=== PATIENT | male | born 1965 | race Caucasian/White ===

== ENCOUNTER 2017-11-19 02:52 | Emergency (ER) | payer OTHER ==
[2017-11-19] MEDS ORDERED: Phenylephrine 0.5% Nasal Spray 15 ML Bot NASBOTH ONE (02:55)
[2017-11-19 02:57] VITALS: BP 143/73
--- NOTE | 2017-11-19 03:07 | EDM.PDOC ---
ED HPI GENERAL MEDICAL PROBLEM - General Chief Complaint: ENT Problem Stated Complaint: BLOODY NOSE Time Seen by Provider: 11/19/17 03:06 Source of Information: Reports: Patient History Limitations: Reports: No Limitations - History of Present Illness INITIAL COMMENTS - FREE TEXT/NARRATIVE: ED with c/o nose bleed since midnight on right side. Reports frequent nose bleeds none this severe. - Related Data Allergies Allergy/AdvReac Type Severity Reaction Status Date / Time gabapentin [From Neurontin] Allergy Rash Verified 11/19/17 03:06 Zxumtdj-[id number]-Hrv Reductase Allergy Chest Pain Verified 11/19/17 03:06 Inhibitor Home Meds: Home Meds metFORMIN [Glucophage] 1,000 mg PO BID 12/01/14 [History] Nitroglycerin [Nitrostat] 0.4 mg SL Q5M PRN 04/21/15 [History] Amitriptyline [Elavil] 10 mg PO BEDTIME 05/15/15 [History] Rivaroxaban [Xarelto] 20 mg PO BEDTIME 05/15/15 [History] Metoprolol Tartrate 100 mg PO BID 11/28/15 [History] Pantoprazole [ProTONIX] 40 mg PO DAILY 11/28/15 [History] Aspirin [Ecotrin] 81 mg PO DAILY 11/19/17 [History] Clopidogrel Bisulfate [Clopidogrel] 75 mg PO DAILY 11/19/17 [History] Multivitamin [Multivitamins] 1 each PO DAILY 11/19/17 [History] Past Medical History HEENT History: Reports: Allergic Rhinitis, Epistaxis, Impaired Vision, Sinusitis Cardiovascular History: Reports: Bypass, CAD, High Cholesterol, Hypertension Respiratory History: Reports: Asthma Gastrointestinal History: Reports: Chronic Constipation Musculoskeletal History: Reports: Fibromyalgia, Osteoarthritis Psychiatric History: Reports: Depression Endocrine/Metabolic History: Reports: Diabetes, Type II, IDDM, Obesity/BMI 30+ - Infectious Disease History Infectious Disease History: Reports: Chicken Pox, Measles - Past Surgical History Cardiovascular Surgical History: Reports: Coronary Artery Bypass Musculoskeletal Surgical History: Reports: None Social & Family History - Family History Family Medical History: Noncontributory - Tobacco Use Smoking Status *Q: Never Smoker Second Hand Smoke Exposure: No - Recreational Drug Use Recreational Drug Use: No - Living Situation & Occupation Living situation: Reports: , with Family Occupation: Disabled ED ROS ENT - Review of Systems Review Of Systems: ROS reveals no pertinent complaints other than HPI. ED EXAM, ENT - Physical Exam Exam: See Below Exam Limited By: No Limitations General Appearance: Alert, Mild Distress Eye Exam: Bilateral Eye: Normal Inspection Ears: Normal External Exam Nose: Active Bleeding (right) Mouth/Throat: Normal Inspection Head: Atraumatic, Normocephalic Neck: Normal Inspection, Supple Respiratory/Chest: No Respiratory Distress, Lungs Clear Cardiovascular: Normal Peripheral Pulses, Regular Rate, Rhythm GI/Abdominal: Normal Bowel Sounds Extremities: Normal Inspection Neurological: Alert, Oriented Psychiatric: Normal Affect Skin: Warm, Dry, Intact, Normal Color ED ENT PROCEDURES - Epistaxis Procedure Indication: Epistaxis, Uncontrolled Uncontrolled HTN: No Recent septal/nasal surgery: No Site of bleeding: Right Nare, Anterior Clearing of clots: Patient Blew Nose Topical Meds: Phenylephrine Anterior Packing: Inflatable Nasal Tampon Complications: No Course - Vital Signs Last Recorded V/S: Last Vital Signs Temp 97.6 F 11/19/17 02:53 Pulse 60 11/19/17 02:53 Resp 18 11/19/17 02:53 BP 143/73 H 11/19/17 02:53 Pulse Ox 99 11/19/17 02:53 - Orders/Labs/Meds Labs: Laboratory Tests 11/19/17 11/19/17 11/19/17 Range/Units 03:35 03:35 03:35 WBC 8.3 (5.0-10.0) 10^3/uL RBC 4.71 (4.6-6.2) 10^6/uL Hgb 13.7 L (14.0-18.0) g/dL Hct 40.5 (40.0-54.0) % MCV 86.0 (80-100) fL MCH 29.1 (27.0-34.0) pg MCHC 33.8 (33.0-35.0) g/dL Plt Count 269 (150-450) 10^3/uL Neut % (Auto) 71.5 (42.2-75.2) % Lymph % (Auto) 21.1 (20.5-50.1) % [place] % (Auto) 6.8 (2-8) % Eos % (Auto) 0.4 L (1.0-3.0) % Baso % (Auto) 0.2 (0.0-1.0) % PT 14.4 H (9.0-12.0) SEC INR 1.4 H (0.9-1.2) Sodium 136 (135-145) mmol/L Potassium 3.8 (3.6-5.0) mmol/L Chloride 103 (101-111) mmol/L Carbon Dioxide 25.0 (21.0-31.0) mmol/L Anion Gap 11.8 BUN 19 H (7-18) mg/dL Creatinine 0.8 (0.6-1.3) mg/dL Est Cr Clr Drug Dosing 89.42 mL/min Estimated GFR (MDRD) > 60 BUN/Creatinine Ratio 23.75 Glucose 184 H (74-105) mg/dL Calcium 9.2 (8.4-10.2) mg/dl Total Bilirubin 0.6 (0.2-1.0) mg/dL AST 27 (10-42) IU/L ALT 31 (10-60) IU/L Alkaline Phosphatase 34 L (42-121) IU/L Total Protein 6.7 (6.7-8.2) g/dl Albumin 3.5 (3.2-5.5) g/dl Globulin 3.2 Albumin/Globulin Ratio 1.09 Meds: Medications Discontinued Medications Generic Name Dose Route Start Last Admin Trade Name Freq PRN Reason Stop Dose Admin Phenylephrine HCl 1 ml 11/19/17 02:55 11/19/17 03:07 Chin-Synephrine 0.5% Regular Nasal [place] NASBOTH 11/19/17 02:56 1 ml ONETIME ONE Administration Departure - Departure Time of Disposition: 04:21 Disposition: Home, Self-Care 01 Condition: Good Clinical Impression: Epistaxis - Discharge Information Instructions: Nosebleed, Adult, [id number] Forms: ED Department Discharge Additional Instructions: follow up in clinic this afternoon for packing removal urgent follow up if recurrent bleeding despite packing. Discuss with primary provider ENT consult due to frequent nose bleeds
[2017-11-19 04:01] LABS: ANION GAP 11.8; CHLORIDE,CL 103 mmol/L (101-111); SODIUM,NA 136 mmol/L (135-145)
== END 2017-11-19 04:27 | disposition home or self-care (01) ==
LOC: DL.ED 02:52
DX: R04.0 Epistaxis (principal); I10 Essential (primary) hypertension; E11.9 Type 2 diabetes mellitus without complications; E78.00 Pure hypercholesterolemia, unspecified; M19.90 Unspecified osteoarthritis, unspecified site; Z88.8 Allergy status to other drugs, medicaments and biological substances; Z79.82 Long term (current) use of aspirin; Z79.84 Long term (current) use of oral hypoglycemic drugs
CPT/HCPCS: 30901; 36415; 80053; 85025; 85610; 99282; 99283; A9270

== ENCOUNTER 2019-06-29 01:02 | Emergency (ER) | payer OTHER ==
[2019-06-29] MEDS ORDERED: Aspirin 81 MG Tab.Chew PO ONE (01:11)
[2019-06-29 01:16] VITALS: PULSE 120
[2019-06-29] MEDS ORDERED: Nitroglycerin 0.4 MG Tab.SL SL ONE (01:21)
[2019-06-29 01:27] VITALS: BP 134/83
[2019-06-29 01:45] LABS: ANION GAP 15.8; CHLORIDE,CL 97 mmol/L (101-111); SODIUM,NA 131 mmol/L (135-145)
[2019-06-29] MEDS ORDERED: Insulin Regular, Human 100 Units/ML 3 ML Vial IV ONE (01:51)
--- NOTE | 2019-06-29 02:30 | EDM.PDOC ---
ED HPI GENERAL MEDICAL PROBLEM - General Chief Complaint: Cardiovascular Problem Stated Complaint: AFIB Time Seen by Provider: 06/29/19 01:15 Source of Information: Reports: Patient History Limitations: Reports: No Limitations - History of Present Illness INITIAL COMMENTS - FREE TEXT/NARRATIVE: ED with chest pain since midnight, heart racing, pain down left arm. 2 stents placed on 06/22. Was doing fine after until. tonight. [place] some intermittent around 1030pm then rapid at midnight. No swelling, No SOB. No sweating Chest Pain Score (Numeric/FACES): 4 - Related Data Allergies Allergy/AdvReac Type Severity Reaction Status Date / Time gabapentin [From Neurontin] Allergy Rash Verified 06/29/19 01:11 Ddngkxf-Mhn-Huy Reductase Allergy Chest Pain Verified 06/29/19 01:11 Inhibitor Home Meds: Home Meds metFORMIN [Glucophage] 1,000 mg PO BID 12/01/14 [History] Nitroglycerin [Nitrostat] 0.4 mg SL Q5M PRN 04/21/15 [History] Amitriptyline [Elavil] 10 mg PO BEDTIME 05/15/15 [History] Rivaroxaban [Xarelto] 20 mg PO BEDTIME 05/15/15 [History] Metoprolol Tartrate 100 mg PO BID 11/28/15 [History] Aspirin [Ecotrin] 81 mg PO DAILY 11/19/17 [History] Clopidogrel Bisulfate [Clopidogrel] 75 mg PO DAILY 11/19/17 [History] Multivitamin [Multivitamins] 1 each PO DAILY 11/19/17 [History] Acetaminophen 500 mg PO Q6H PRN 06/29/19 [History] Empagliflozin [Jardiance] 60 mg PO DAILY 06/29/19 [History] Ezetimibe 10 mg PO DAILY 06/29/19 [History] Glucosam/Chond/Collagen/Hyalur [Glucosamine Chondroitin] 1 each PO BID 06/29/19 [History] Insulin Glarg,Human.Rec.Analog [Lantus] 40 units SQ BEDTIME 06/29/19 [History] Isosorbide Mononitrate [Imdur] 120 mg PO BID 06/29/19 [History] Pantoprazole Sodium [Protonix] 40 mg PO DAILY 06/29/19 [History] Past Medical History HEENT History: Reports: Allergic Rhinitis, Epistaxis, Impaired Vision, Sinusitis Cardiovascular History: Reports: Bypass, CAD, High Cholesterol, Hypertension, Stents Respiratory History: Reports: Asthma Gastrointestinal History: Reports: Chronic Constipation Musculoskeletal History: Reports: Fibromyalgia, Osteoarthritis Psychiatric History: Reports: Depression Endocrine/Metabolic History: Reports: Diabetes, Type II, IDDM, Obesity/BMI 30+ - Infectious Disease History Infectious Disease History: Reports: Chicken Pox, Measles - Past Surgical History Cardiovascular Surgical History: Reports: Coronary Artery Bypass Musculoskeletal Surgical History: Reports: None Social & Family History - Family History Family Medical History: Noncontributory - Tobacco Use Smoking Status *Q: Never Smoker Second Hand Smoke Exposure: No - Caffeine Use Caffeine Use: Reports: None - Recreational Drug Use Recreational Drug Use: No - Living Situation & Occupation Living situation: Reports: , with Family Occupation: Disabled ED ROS GENERAL - Review of Systems Review Of Systems: See Below Constitutional: Reports: No Symptoms HEENT: Reports: No Symptoms Respiratory: Reports: No Symptoms Cardiovascular: Reports: Chest Pain, Palpitations. Denies: Edema Endocrine: Reports: No Symptoms GI/Abdominal: Reports: No Symptoms Musculoskeletal: Reports: No Symptoms Skin: Reports: No Symptoms Neurological: Reports: No Symptoms Psychiatric: Reports: Anxiety Hematologic/Lymphatic: Reports: No Symptoms ED EXAM, GENERAL - Physical Exam Exam: See Below Exam Limited By: No Limitations General Appearance: Alert, No Apparent Distress, Anxious Eye Exam: Bilateral Eye: EOMI Ears: Normal External Exam, Hearing Grossly Normal Nose: Normal Inspection, Normal Mucosa Throat/Mouth: Normal Inspection, Normal Lips Head: Atraumatic, Normocephalic Neck: Normal Inspection, Full Range of Motion Respiratory/Chest: No Respiratory Distress, Lungs Clear, Normal Breath Sounds Cardiovascular: No Edema, Tachycardia, Irregularly Irregular. No: Normal Peripheral Pulses GI/Abdominal: Normal Bowel Sounds, Soft Back Exam: Normal Inspection, Full Range of Motion Extremities: Normal Inspection, Normal Range of Motion. No: Pedal Edema Neurological: Alert, Oriented, Normal Cognition Psychiatric: Normal Affect, Normal Mood Skin Exam: Warm, Dry, Intact, Normal Color Course - Vital Signs Last Recorded V/S: Last Vital Signs Temp 97.6 F 06/29/19 01:11 Pulse 120 H 06/29/19 01:11 Resp 18 06/29/19 01:11 BP 134/83 06/29/19 01:26 Pulse Ox 97 06/29/19 01:11 - Orders/Labs/Meds Orders: Active Orders 24 hr Category Date Time Status Cardiac Monitoring [RC] . DIRECTED Care 06/29/19 01:13 Active EKG Documentation Completion [RC] STAT Care 06/29/19 01:14 Active EKG Documentation Completion [RC] URGENT Care 06/29/19 01:21 Active Chest 1V Frontal [CR] Stat Exams 06/29/19 01:14 Taken Labs: Laboratory Tests 06/29/19 06/29/19 06/29/19 Range/Units 01:19 01:19 01:19 WBC 7.4 (5.0-10.0) 10^3/uL RBC 5.74 (4.6-6.2) 10^6/uL Hgb 17.2 D (14.0-18.0) g/dL Hct 47.1 (40.0-54.0) % MCV 82.1 D (80-100) fL MCH 30.0 (27.0-34.0) pg MCHC 36.5 H (33.0-35.0) g/dL Plt Count 293 (150-450) 10^3/uL Neut % (Auto) 61.9 (42.2-75.2) % Lymph % (Auto) 25.2 (20.5-50.1) % [place] % (Auto) 11.4 H (2-8) % Eos % (Auto) 1.1 (1.0-3.0) % Baso % (Auto) 0.4 (0.0-1.0) % PT 10.4 (9.0-12.0) SEC INR 1.0 (0.9-1.2) D-Dimer, Quantitative < 100 (0-400) ng/mL Sodium 131 L (135-145) mmol/L Potassium 3.8 (3.6-5.0) mmol/L Chloride 97 L (101-111) mmol/L Carbon Dioxide 22.0 (21.0-31.0) mmol/L Anion Gap 15.8 BUN 23 H (7-18) mg/dL Creatinine 0.8 (0.6-1.3) mg/dL Est Cr Clr Drug Dosing 87.36 mL/min Estimated GFR (MDRD) > 60 BUN/Creatinine Ratio 28.75 Glucose 348 H (74-105) mg/dL POC Glucose (70-105) mg/dl Calcium 9.3 (8.4-10.2) mg/dl Magnesium 2.5 (1.8-2.5) mg/dL Total Bilirubin 0.7 (0.2-1.0) mg/dL AST 15 (10-42) IU/L ALT 18 (10-60) IU/L Alkaline Phosphatase 54 (42-121) IU/L Troponin I 0.03 H* (0.00-0.02) ng/ml B-Natriuretic Peptide 62 (0-100) pg/ml Total Protein 7.2 (6.7-8.2) g/dl Albumin 4.2 (3.2-5.5) g/dl Globulin 3.0 Albumin/Globulin Ratio 1.40 Amylase 58 (28-100) U/L 06/29/19 Range/Units 02:50 WBC (5.0-10.0) 10^3/uL RBC (4.6-6.2) 10^6/uL Hgb (14.0-18.0) g/dL Hct (40.0-54.0) % MCV (80-100) fL MCH (27.0-34.0) pg MCHC (33.0-35.0) g/dL Plt Count (150-450) 10^3/uL Neut % (Auto) (42.2-75.2) % Lymph % (Auto) (20.5-50.1) % [place] % (Auto) (2-8) % Eos % (Auto) (1.0-3.0) % Baso % (Auto) (0.0-1.0) % PT (9.0-12.0) SEC INR (0.9-1.2) D-Dimer, Quantitative (0-400) ng/mL Sodium (135-145) mmol/L Potassium (3.6-5.0) mmol/L Chloride (101-111) mmol/L Carbon Dioxide (21.0-31.0) mmol/L Anion Gap BUN (7-18) mg/dL Creatinine (0.6-1.3) mg/dL Est Cr Clr Drug Dosing mL/min Estimated GFR (MDRD) BUN/Creatinine Ratio Glucose (74-105) mg/dL POC Glucose 202 H (70-105) mg/dl Calcium (8.4-10.2) mg/dl Magnesium (1.8-2.5) mg/dL Total Bilirubin (0.2-1.0) mg/dL AST (10-42) IU/L ALT (10-60) IU/L Alkaline Phosphatase (42-121) IU/L Troponin I (0.00-0.02) ng/ml B-Natriuretic Peptide (0-100) pg/ml Total Protein (6.7-8.2) g/dl Albumin (3.2-5.5) g/dl Globulin Albumin/Globulin Ratio Amylase (28-100) U/L Meds: Medications Discontinued Medications Generic Name Dose Route Start Last Admin Trade Name Freq PRN Reason Stop Dose Admin Aspirin 162 mg 06/29/19 01:11 06/29/19 01:26 Aspirin PO 06/29/19 01:12 162 mg ONETIME ONE Administration Insulin Human Regular 5 unit 06/29/19 01:51 06/29/19 01:58 Humulin R IV 06/29/19 01:52 5 units ONETIME ONE Administration Nitroglycerin 0.4 mg 06/29/19 01:21 06/29/19 01:26 Nitrostat SL 06/29/19 01:22 0.4 mg ONETIME ONE Administration Departure - Departure Time of Disposition: 03:13 Disposition: DC/Tfer to Acute Hospital 02 Reason for Transfer *Q: Other Condition: Good Clinical Impression: Hyperglycemia, S/P cardiac catheterization Chest pain Qualifiers: Chest pain type: chest pain due to myocardial ischemia Qualified Code(s): I20.9 - Angina pectoris, unspecified Referrals: PCP,None [Primary Care Provider] - Forms: ED Department Discharge - My Orders Last 24 Hours: My Active Orders 06/29/19 01:13 Cardiac Monitoring [RC] . DIRECTED 06/29/19 01:14 EKG Documentation Completion [RC] STAT Chest 1V Frontal [CR] Stat 06/29/19 01:21 EKG Documentation Completion [RC] URGENT - Assessment/Plan Last 24 Hours: My Active Orders 06/29/19 01:13 Cardiac Monitoring [RC] . DIRECTED 06/29/19 01:14 EKG Documentation Completion [RC] STAT Chest 1V Frontal [CR] Stat 06/29/19 01:21 EKG Documentation Completion [RC] URGENT
== END 2019-06-29 03:07 ==
LOC: DL.ED 01:02
DX: E11.65 Type 2 diabetes mellitus with hyperglycemia (principal); Z98.61 Coronary angioplasty status; I25.10 Atherosclerotic heart disease of native coronary artery without angina pectoris; I10 Essential (primary) hypertension; E78.00 Pure hypercholesterolemia, unspecified; J45.909 Unspecified asthma, uncomplicated; F32.9 Major depressive disorder, single episode, unspecified; Z95.5 Presence of coronary angioplasty implant and graft; E66.9 Obesity, unspecified; Z68.31 Body mass index [BMI] 31.0-31.9, adult; Z88.8 Allergy status to other drugs, medicaments and biological substances; Z79.82 Long term (current) use of aspirin; Z79.01 Long term (current) use of anticoagulants; Z79.4 Long term (current) use of insulin; Z79.899 Other long term (current) drug therapy
CPT/HCPCS: 36415; 71045; 80053; 82150; 82962; 83735; 83880; 84484; 85025; 85379; 85610; 93005; 96372; 99285; A9270; J1815

== ENCOUNTER 2020-03-31 15:56 | Emergency (ER) | payer OTHER ==
[2020-03-31] MEDS ORDERED: Sodium Chloride 0.9% 10 ML Syringe FLUSH PRN (16:08)
--- NOTE | 2020-03-31 16:26 | CR ---
PROCEDURE INFORMATION: Exam: XR Chest, 1 View Exam date and time: 03/31/2020 4:17 PM Age: 54 years old Clinical indication: Other: Chest pain TECHNIQUE: Imaging protocol: XR of the chest Views: 1 view. COMPARISON: CR Chest 1V Frontal 06/29/2019 1:59 AM FINDINGS: Tubes, catheters and devices: Sternal suture wires are in place suggesting prior median sternotomy. A implanted combat systems officer projects over the heart above the left hemidiaphragm. Lungs: Unremarkable. No consolidation. Pleural space: Unremarkable. No pleural effusion. No pneumothorax. Heart/Mediastinum: Unremarkable. No cardiomegaly. Bones/joints: Unremarkable. IMPRESSION: No acute findings.
[2020-03-31 16:47] LABS: PTT,PARTIAL THROMBOPLSTIN TIME 26.8 SEC (22.0-34.0)
--- NOTE | 2020-03-31 17:23 | EDM.PDOC ---
Scribed by Taty Baker 03/31/20 1722 for José Miguel Cristobal MD <José Miguel Cristobal - Last Filed: 03/31/20 17:13> ED HPI GENERAL MEDICAL PROBLEM - General Chief Complaint: Chest Pain Stated Complaint: PT SAYS CHEST PAIN, HEART PROBLEMS [phone] Time Seen by Provider: 03/31/20 16:08 Source of Information: Reports: Patient, RN, RN Notes Reviewed History Limitations: Reports: No Limitations - History of Present Illness INITIAL COMMENTS - FREE TEXT/NARRATIVE: Patient presents to the ED by POV stating he was feeling short of breath this morning which he does most mornings. Then he started experiencing chest pain this afternoon. He took Nitro x3 and it relieved the pain. Now rates pain 2/10 but states if is fading away. Hx of known CAD with CABG and STENTS. He follows with Dr. Soto at [facility] in . He admits the he has been using NTG more frequently over the past few weeks. Onset: Today Duration: Chronic, Getting Worse, Recurring Location: Reports: Chest Quality: Reports: Ache, Same as Previous Episode Severity: Moderate Improves with: Reports: None Worsens with: Reports: None Associated Symptoms: Reports: No Other Symptoms Middle Chest Pain Score (Numeric/FACES): 2 - Related Data Allergies Allergy/AdvReac Type Severity Reaction Status Date / Time gabapentin [From Neurontin] Allergy Rash Verified 03/31/20 16:17 Grfbqhy-Knm-Uws Reductase Allergy Chest Pain Verified 03/31/20 16:17 Inhibitor Home Meds: Home Meds metFORMIN [Glucophage] 1,000 mg PO BID 12/01/14 [History] Nitroglycerin [Nitrostat] 0.4 mg SL Q5M PRN 04/21/15 [History] Amitriptyline [Elavil] 10 mg PO BEDTIME 05/15/15 [History] Rivaroxaban [Xarelto] 20 mg PO BEDTIME 05/15/15 [History] Metoprolol Tartrate 100 mg PO BID 11/28/15 [History] Clopidogrel Bisulfate [Clopidogrel] 75 mg PO DAILY 11/19/17 [History] Multivitamin [Multivitamins] 1 each PO DAILY 11/19/17 [History] Acetaminophen 500 mg PO Q6H PRN 06/29/19 [History] Empagliflozin [Jardiance] 60 mg PO DAILY 06/29/19 [History] Ezetimibe 10 mg PO DAILY 06/29/19 [History] Glucosam/Chond/Collagen/Hyalur [Glucosamine Chondroitin] 1 each PO BID 06/29/19 [History] Insulin Glarg,Human.Rec.Analog [Lantus] 40 units SQ BEDTIME 06/29/19 [History] Isosorbide Mononitrate [Imdur] 120 mg PO BID 06/29/19 [History] Pantoprazole Sodium [Protonix] 40 mg PO DAILY 06/29/19 [History] Past Medical History HEENT History: Reports: Allergic Rhinitis, Epistaxis, Impaired Vision, Sinusitis Cardiovascular History: Reports: Bypass, CAD, High Cholesterol, Hypertension, Stents Respiratory History: Reports: Asthma Gastrointestinal History: Reports: Chronic Constipation Musculoskeletal History: Reports: Fibromyalgia, Osteoarthritis Psychiatric History: Reports: Depression Endocrine/Metabolic History: Reports: Diabetes, Type II, IDDM, Obesity/BMI 30+ - Infectious Disease History Infectious Disease History: Reports: Chicken Pox, Measles - Past Surgical History Cardiovascular Surgical History: Reports: Coronary Artery Bypass Musculoskeletal Surgical History: Reports: None Social & Family History - Family History Family Medical History: Noncontributory - Caffeine Use Caffeine Use: Reports: None - Living Situation & Occupation Living situation: Reports: , with Family Occupation: Disabled ED ROS GENERAL - Review of Systems Review Of Systems: Comprehensive ROS is negative, except as noted in HPI. ED EXAM, GENERAL - Physical Exam Exam: See Below Exam Limited By: No Limitations General Appearance: Alert, WD/WN, No Apparent Distress Eye Exam: Bilateral Eye: Normal Inspection Head: Atraumatic, Normocephalic Neck: Normal Inspection, Supple, Non-Tender, Full Range of Motion Respiratory/Chest: No Respiratory Distress, Lungs Clear, Normal Breath Sounds, No Accessory Muscle Use, Chest Non-Tender Cardiovascular: Systolic Murmur (/6) GI/Abdominal: Normal Bowel Sounds, Soft, Non-Tender, No Organomegaly, No Distention, No Abnormal Bruit, No Mass (Male) Exam: Deferred Rectal (Males) Exam: Deferred Back Exam: Normal Inspection, Full Range of Motion, NT Extremities: Normal Inspection, Normal Range of Motion, Non-Tender, Normal Capillary Refill, No Pedal Edema Neurological: Alert, Oriented, CN II-XII Intact, Normal Cognition, Normal Gait, Normal Reflexes, No Motor/Sensory Deficits Psychiatric: Normal Affect, Normal Mood Skin Exam: Warm, Dry, Intact, Normal Color, No Rash EKG INTERPRETATION EKG Date: 03/31/20 Time: 16:04 Rhythm: Other (sinus rhythm) Rate (Beats/Min): 65 [place]: Normal P-Wave: Present QRS: Normal ST-T: Other (abnormal T, consider ischemia, lateral leads.) QT: Normal Comparison: No Change (from06/29/19.) Course - Radiology Interpretation Free Text/Narrative:: Chest x-ray: No acute findings per rad report. - Re-Assessments/Exams Free Text/Narrative Re-Assessment/Exam: 03/31/20 Care of pt transferred to [facility] at 1900HR shift change with pt on extended ER for repeat Troponin and EKG at 2000HRS. Departure - Departure Disposition: Home, Self-Care 01 Clinical Impression: Chest pain Qualifiers: Chest pain type: chest pain due to myocardial ischemia Qualified Code(s): I20.9 - Angina pectoris, unspecified Instructions: Nonspecific Chest Pain, Adult, [id number] Forms: ED Department Discharge Additional Instructions: Continue taking medications as prescribed. Symptoms to return to the ER reviewed with patient. Follow up with CP in 4 days. Patient in agreement to plan. The <Eugenio Kasper - Last Filed: 03/31/20 21:16> Course - Vital Signs Last Recorded V/S: Last Vital Signs Temp 97.9 F 03/31/20 18:05 Pulse 67 03/31/20 18:05 Resp 20 03/31/20 18:05 BP 123/71 03/31/20 18:05 Pulse Ox 96 03/31/20 18:05 - Orders/Labs/Meds Orders: Active Orders 24 hr Category Date Time Status EKG 12 Lead [EKG Documentation Completion] [RC] STAT Care 03/31/20 16:08 Active EKG Documentation Completion [RC] ROUTINE Care 03/31/20 17:13 Active Peripheral IV Care [RC] . DIRECTED Care 03/31/20 16:09 Active Sodium Chloride 0.9% [Saline Flush] Med 03/31/20 16:08 Active 10 ml FLUSH ASDIRECTED PRN Peripheral IV Insertion Adult [OM.PC] Stat Oth 03/31/20 16:08 Ordered Medication Orders Sodium Chloride (Saline Flush) 10 ml FLUSH ASDIRECTED PRN PRN Reason: Keep Vein Open Last Admin: 03/31/20 16:24 Dose: 10 ml Documented by: YAMINI Labs: Laboratory Tests 03/31/20 03/31/20 03/31/20 Range/Units 16:07 16:07 16:07 WBC 7.1 (5.0-10.0) 10^3/uL RBC 5.74 (4.6-6.2) 10^6/uL Hgb 16.8 (14.0-18.0) g/dL Hct 47.8 (40.0-54.0) % MCV 83.3 (80-100) fL MCH 29.3 (27.0-34.0) pg MCHC 35.1 H (33.0-35.0) g/dL Plt Count 305 (150-450) 10^3/uL Neut % (Auto) 67.8 (42.2-75.2) % Lymph % (Auto) 20.5 (20.5-50.1) % [place] % (Auto) 10.0 H (2-8) % Eos % (Auto) 1.3 (1.0-3.0) % Baso % (Auto) 0.4 (0.0-1.0) % PT 11.2 (9.0-12.0) SEC INR 1.2 (0.9-1.2) APTT 26.8 (22.0-34.0) SEC Sodium 137 (136-145) mmol/L Potassium 4.0 (3.5-5.1) mmol/L Chloride 101 (98-107) mmol/L Carbon Dioxide 24 (21-32) mmol/L Anion Gap 16.0 H (7-13) mEq/L BUN 20 H (7-18) mg/dL Creatinine 1.10 (0.70-1.30) mg/dL Est Cr Clr Drug Dosing 62.79 mL/min Estimated GFR (MDRD) > 60 BUN/Creatinine Ratio 18.2 (No establ ref range) Glucose 133 H (74-99) mg/dL Calcium 9.1 (8.5-10.1) mg/dL Total Bilirubin 0.4 (0.2-1.0) mg/dL AST 18 (15-37) U/L ALT 25 (16-63) U/L Alkaline Phosphatase 61 (46-116) U/L Troponin I < 0.017 (0.000-0.056) ng/mL B-Natriuretic Peptide 50 (0-100) pg/ml Total Protein 7.9 (6.4-8.2) g/dL Albumin 3.7 (3.4-5.0) g/dL Globulin 4.2 Albumin/Globulin Ratio 0.9 Lipase 78 (73-393) U/L 03/31/20 Range/Units 20:05 WBC (5.0-10.0) 10^3/uL RBC (4.6-6.2) 10^6/uL Hgb (14.0-18.0) g/dL Hct (40.0-54.0) % MCV (80-100) fL MCH (27.0-34.0) pg MCHC (33.0-35.0) g/dL Plt Count (150-450) 10^3/uL Neut % (Auto) (42.2-75.2) % Lymph % (Auto) (20.5-50.1) % [place] % (Auto) (2-8) % Eos % (Auto) (1.0-3.0) % Baso % (Auto) (0.0-1.0) % PT (9.0-12.0) SEC INR (0.9-1.2) APTT (22.0-34.0) SEC Sodium (136-145) mmol/L Potassium (3.5-5.1) mmol/L Chloride (98-107) mmol/L Carbon Dioxide (21-32) mmol/L Anion Gap (7-13) mEq/L BUN (7-18) mg/dL Creatinine (0.70-1.30) mg/dL Est Cr Clr Drug Dosing mL/min Estimated GFR (MDRD) BUN/Creatinine Ratio (No establ ref range) Glucose (74-99) mg/dL Calcium (8.5-10.1) mg/dL Total Bilirubin (0.2-1.0) mg/dL AST (15-37) U/L ALT (16-63) U/L Alkaline Phosphatase (46-116) U/L Troponin I < 0.017 (0.000-0.056) ng/mL B-Natriuretic Peptide (0-100) pg/ml Total Protein (6.4-8.2) g/dL Albumin (3.4-5.0) g/dL Globulin Albumin/Globulin Ratio Lipase (73-393) U/L Meds: Medications Generic Name Dose Route Start Last Admin Trade Name Freq PRN Reason Stop Dose Admin Sodium Chloride 10 ml 03/31/20 16:08 03/31/20 16:24 Saline Flush FLUSH 10 ml ASDIRECTED PRN Administration Keep Vein Open - Re-Assessments/Exams Free Text/Narrative Re-Assessment/Exam: Reviewed EKG and Troponin results with patient. Encouraged him to continue taking medications as prescribed. Follow up with PCP. Departure - Departure Time of Disposition: 21:13 Condition: Good, Fair Sepsis Event Note (ED) - Focused Exam Vital Signs: Vital Signs Temp Pulse Resp BP Pulse Ox 03/31/20 18:05 97.9 F 67 20 123/71 96 03/31/20 16:14 97.0 F 66 16 129/91 H 97 I have read and agree with the documentation that has been completed regarding this visit. By signing this record, I attest that the documentation was completed in my physical presence and is an accurate record of the encounter.
[2020-03-31 17:29] LABS: CHLORIDE,CL 101 mmol/L (98-107); SODIUM,NA 137 mmol/L (136-145)
[2020-03-31 21:55] VITALS: BP 128/68; PULSE 72
== END 2020-03-31 21:49 | disposition home or self-care (01) ==
LOC: DL.ED 15:56
DX: I21.9 Acute myocardial infarction, unspecified (principal); I10 Essential (primary) hypertension; I25.10 Atherosclerotic heart disease of native coronary artery without angina pectoris; E78.00 Pure hypercholesterolemia, unspecified; J45.909 Unspecified asthma, uncomplicated; M19.90 Unspecified osteoarthritis, unspecified site; F32.9 Major depressive disorder, single episode, unspecified; E11.9 Type 2 diabetes mellitus without complications; E66.9 Obesity, unspecified; Z68.28 Body mass index [BMI] 28.0-28.9, adult; Z95.1 Presence of aortocoronary bypass graft; Z88.8 Allergy status to other drugs, medicaments and biological substances; Z88.6 Allergy status to analgesic agent; Z79.899 Other long term (current) drug therapy; Z79.4 Long term (current) use of insulin
CPT/HCPCS: 36415; 71045; 80053; 83690; 83880; 84484; 85025; 85610; 85730; 93005; 99285-25

== ENCOUNTER 2021-05-11 12:09 | Emergency (ER) | payer OTHER, MEDICARE ==
[2021-05-11 15:05] VITALS: BP 128/80; PULSE 56
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
--- NOTE | 2021-05-11 15:43 | CR ---
EXAMINATION: Lumbar Spine 2 or 3V SEX: Male AGE: 55 years CLINICAL HISTORY: 55-year-old male with low back pain laterally to the right hip and radiating down the leg. Interpretation: Chronic disc disease and reactive arthritic changes lower thoracic spine. Normal height, density and alignment of the lumbar vertebra. Mild marginal lumbar spondylosis. No pathologic skeletal lesion, lumbar fracture, spondylolisthesis or abnormal intervertebral disc space narrowing. Symmetric spacing normal-appearing SI and hip joints without appreciable arthritic degenerative change. CONCLUSION: Multilevel lower thoracic disc disease. Hypertrophic arthritic changes thoracolumbar spine. No pathologic skeletal lesion, fracture or dislocation.
--- NOTE | 2021-05-11 15:45 | CR ---
EXAMINATION: Hip Min 2V or 3V w Pelvis Rt SEX: Male AGE: 55 years CLINICAL HISTORY: 55-year-old male with lateral right hip pain that radiates into the leg. Interpretation: Negative. Homogeneous normal bone mineral density. No pathologic skeletal lesion. Symmetric spacing normal-appearing SI and hip joints without appreciable arthritic degenerative change. No pelvic fracture or fracture/dislocation either hip. No foreign bodies.
[2021-05-11] MEDS ORDERED: Orphenadrine 60 MG/2 ML Inj IM ONE (16:06)
[2021-05-11] MEDS ORDERED: methylPREDNISolone Sodium Succinate 125 MG/2 ML SDV IM ONE (16:06)
[2021-05-11] MEDS ORDERED: Ketorolac 30 MG/ML SDV IM ONE (16:10)
== END 2021-05-11 17:11 | disposition home or self-care (01) ==
LOC: DL.ED 12:09
DX: M51.34 Other intervertebral disc degeneration, thoracic region (principal); M79.661 Pain in right lower leg; I25.10 Atherosclerotic heart disease of native coronary artery without angina pectoris; E78.00 Pure hypercholesterolemia, unspecified; I10 Essential (primary) hypertension; E11.9 Type 2 diabetes mellitus without complications; E66.9 Obesity, unspecified; Z68.30 Body mass index [BMI] 30.0-30.9, adult; Z95.1 Presence of aortocoronary bypass graft; Z88.8 Allergy status to other drugs, medicaments and biological substances; Z79.01 Long term (current) use of anticoagulants; Z79.02 Long term (current) use of antithrombotics/antiplatelets; Z79.899 Other long term (current) drug therapy; Z79.4 Long term (current) use of insulin
CPT/HCPCS: 72100; 96372; 99283; J2360

== ENCOUNTER 2021-05-31 09:13 | Emergency (ER) | payer OTHER, MEDICARE ==
[2021-05-31] MEDS ORDERED: Sodium Chloride 0.9% 10 ML Syringe FLUSH PRN (09:28)
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
[2021-05-31 09:33] VITALS: BP 119/90; PULSE 65
[2021-05-31] MEDS ORDERED: Aspirin 81 MG Tab.Chew PO ONE (09:37)
[2021-05-31 10:06] LABS: ANION GAP 19.3 mEq/L (7-13); CHLORIDE,CL 101 mmol/L (98-107); SODIUM,NA 139 mmol/L (136-145)
--- NOTE | 2021-05-31 10:26 | CR ---
EXAMINATION: Chest 1V Frontal SEX: Male AGE: 55 years CLINICAL HISTORY: 55-year-old male with chest pain. Comparison CXR 29 June 2019 and 31 March 2020. Interpretation: Sternotomy wires and external monitoring manager leads. Normal cardiac silhouette (size and configuration) unchanged since 31 March 2020 comparison exam. No new pulmonary vascular congestion, cephalization of flow, alveolar edema or dependent pleural fluid accumulation. No new lung mass or hilar lymphadenopathy. No alveolar infiltrates, air bronchograms or peripheral interstitial "groundglass" lung densities. No pneumothorax or pneumomediastinum. No free subdiaphragmatic air. CONCLUSION: No acute new cardiopulmonary abnormality.
[2021-05-31] MEDS ORDERED: Heparin Sodium 5,000 Units/ML Vial IVPUSH ONE (10:38)
[2021-05-31] MEDS ORDERED: Heparin Sodium/0.45% NaCl 25,000 UNITS/500 ML BAG IV SCH (10:45)
== END 2021-05-31 11:49 | disposition home or self-care (01) ==
LOC: DL.ED 09:13
DX: I21.4 Non-ST elevation (NSTEMI) myocardial infarction (principal); I24.9 Acute ischemic heart disease, unspecified; I48.0 Paroxysmal atrial fibrillation; E11.69 Type 2 diabetes mellitus with other specified complication; I25.700 Atherosclerosis of coronary artery bypass graft(s), unspecified, with unstable angina pectoris; I10 Essential (primary) hypertension; J45.909 Unspecified asthma, uncomplicated; E66.9 Obesity, unspecified; Z68.29 Body mass index [BMI] 29.0-29.9, adult; Z95.5 Presence of coronary angioplasty implant and graft; Z88.8 Allergy status to other drugs, medicaments and biological substances; Z79.01 Long term (current) use of anticoagulants; Z79.02 Long term (current) use of antithrombotics/antiplatelets; Z79.4 Long term (current) use of insulin; Z79.899 Other long term (current) drug therapy
CPT/HCPCS: 36415; 71045; 80053; 82150; 83690; 83735; 83880; 84443; 84484; 85025; 85730; 93005; 96365; 99285; A9270; J1644

== ENCOUNTER 2023-03-09 21:23 | Emergency (ER) | payer MEDICARE, OTHER ==
[2023-03-09] MEDS ORDERED: fentaNYL 100 MCG/2 ML SDV IVPUSH ONE ×2 (21:33→21:50)
[2023-03-09] MEDS ORDERED: Ondansetron 4 MG/2 ML SDV IVPUSH ONE ×2 (21:34→22:13)
[2023-03-09 21:38] LABS: BASOPHILS PERCENT AUTO 0.3 % (0.0-1.0); EOSINOPHILS PERCENT AUTO 1.6 % (1.0-3.0); HEMATOCRIT 39.6 % (40.0-54.0); HEMOGLOBIN 11.9 g/dL (14.0-18.0); MEAN CORPUSCULAR HEMOGLOBIN 21.6 pg (27.0-34.0); MEAN CORPUSCULAR HGB CONC 30.1 g/dL (33.0-35.0); MEAN CORPUSCULAR VOLUME 71.9 fL (80-100); MONOCYTES PERCENT AUTO 7.3 % (2-8); NEUTROPHILS PERCENT AUTO 72.8 % (42.2-75.2); PLATELET COUNT,PLT 489 10^3/uL (150-450); RED BLOOD CELL COUNT 5.51 10^6/uL (4.6-6.2)
[2023-03-09] MEDS: Sodium Chloride 0.9% 10 ML Syringe FLUSH PRN ×3 (21:44→22:22)
[2023-03-09] MEDS ORDERED: Iopamidol 612 MG/ML 100 ML Bottle IVPUSH ONE (21:48)
[2023-03-09 21:53] LABS: INR 1.1 (0.9-1.2)
[2023-03-09 22:00] LABS: A/G RATIO 0.8; ALANINE AMINOTRANSFERASE,ALT 22 U/L (16-63); ALBUMIN 3.7 g/dL (3.4-5.0); ALKALINE PHOSPHATASE 71 U/L (46-116); AMYLASE 29 U/L (25-115); ANION GAP 17.5 mEq/L (7-13); ASPARTATE AMNIOTRANSFERASE,AST 16 U/L (15-37); BILIRUBIN TOTAL 0.3 mg/dL (0.2-1.0); BLOOD UREA NITROGEN,BUN 23 mg/dL (7-18); C-REACTIVE PROTEIN 0.4 mg/dL (0.0-0.9); CALCIUM 9.1 mg/dL (8.5-10.1); CARBON DIOXIDE,CO2 23 mmol/L (21-32); CHLORIDE,CL 102 mmol/L (98-107); CREATININE 1.21 mg/dL (0.70-1.30); ESTIMATED GFR 69 mL/min (>=60); GLUCOSE RANDOM 218 mg/dL (70-99); LIPASE 51 U/L (73-393); MAGNESIUM 2.1 mg/dL (1.8-2.4); POTASSIUM,K 4.5 mmol/L (3.5-5.1); PROTEIN TOTAL,TP 8.2 g/dL (6.4-8.2); SODIUM,NA 138 mmol/L (136-145)
[2023-03-09 22:02] LABS: LACTIC ACID 2.2 mmol/L (0.4-2.0)
[2023-03-09] MEDS ORDERED: Heparin Sodium 5,000 Units/ML Vial IVPUSH ONE (22:25)
[2023-03-09] MEDS ORDERED: Clopidogrel 75 MG Tab PO ONE (22:25)
[2023-03-09] MEDS ORDERED: Heparin Sodium/0.45% NaCl 500 ML ONE (22:28)
[2023-03-09] MEDS ORDERED: Heparin Sodium/0.45% NaCl 25,000 UNITS/500 ML BAG IV SCH (22:30)
[2023-03-09 23:08] VITALS: BP 117/70; PULSE 85
== END 2023-03-09 22:55 ==
LOC: DL.ED 21:23
DX: I21.4 Non-ST elevation (NSTEMI) myocardial infarction (principal); J81.1 Chronic pulmonary edema; I25.10 Atherosclerotic heart disease of native coronary artery without angina pectoris; I10 Essential (primary) hypertension; E11.9 Type 2 diabetes mellitus without complications; E78.00 Pure hypercholesterolemia, unspecified; J45.909 Unspecified asthma, uncomplicated; E66.9 Obesity, unspecified; Z68.29 Body mass index [BMI] 29.0-29.9, adult; Z95.1 Presence of aortocoronary bypass graft; Z79.84 Long term (current) use of oral hypoglycemic drugs; Z79.899 Other long term (current) drug therapy; Z88.8 Allergy status to other drugs, medicaments and biological substances
CPT/HCPCS: 36415; 71045; 71260; 80053; 82150; 83605; 83690; 83735; 83880; 84484; 85025; 85379; 85610; 86140; 93005; 93010; 96365; 96375; 96376; 99285; 99285-25; A9270-GY; J1644; J2405; J3010; J3490; Q9967

== ENCOUNTER 2024-10-01 12:10 | Emergency (ER) | payer OTHER ==
[2024-10-01] MEDS ORDERED: Sodium Chloride 0.9% 10 ML Syringe FLUSH PRN ×2 (12:33)
[2024-10-01] MEDS: Sodium Chloride 0.9% 500 ML IV SCH (12:43)
[2024-10-01 12:47] LABS: BASOPHILS PERCENT AUTO 0.2 % (0.0-1.0); EOSINOPHILS PERCENT AUTO 0.6 % (1.0-3.0); HEMATOCRIT 43.6 % (40.0-54.0); HEMOGLOBIN 14.3 g/dL (14.0-18.0); LYMPHOCYTES PERCENT AUTO 9.1 % (20.5-50.1); MEAN CORPUSCULAR HGB CONC 32.8 g/dL (33.0-35.0); MEAN CORPUSCULAR VOLUME 88.4 fL (80-100); MONOCYTES PERCENT AUTO 8.4 % (2-8); NEUTROPHILS PERCENT AUTO 81.7 % (42.2-75.2); PLATELET COUNT,PLT 322 10^3/uL (150-450); RED BLOOD CELL COUNT 4.93 10^6/uL (4.6-6.2)
[2024-10-01 13:01] LABS: INR 1.1 (0.9-1.2); PROTHROMBIN TIME 11.9 SEC (9.0-12.0)
[2024-10-01 13:19] LABS: ALBUMIN 3.9 g/dL (3.4-5.0); ANION GAP 16.2 mEq/L (7-13); BILIRUBIN TOTAL 0.4 mg/dL (0.2-1.0); BUN/CREATININE RATIO 17.6 (No establ ref range); CALCIUM 9.6 mg/dL (8.5-10.1); CREATININE 1.36 mg/dL (0.70-1.30); EST CRCL DRUG DOSING (CG) 48.37 mL/min; PROTEIN TOTAL,TP 7.7 g/dL (6.4-8.2)
[2024-10-01 13:25] LABS: POTASSIUM,K 5.2 mmol/L (3.5-5.1)
[2024-10-01 15:12] VITALS: BP 105/67; PULSE 60
== END 2024-10-01 16:47 | disposition home or self-care (01) ==
LOC: DL.ED 12:10
DX: I95.9 Hypotension, unspecified (principal); I25.10 Atherosclerotic heart disease of native coronary artery without angina pectoris; I11.0 Hypertensive heart disease with heart failure; I50.9 Heart failure, unspecified; I25.2 Old myocardial infarction; J45.909 Unspecified asthma, uncomplicated; M19.90 Unspecified osteoarthritis, unspecified site; E11.9 Type 2 diabetes mellitus without complications; E66.9 Obesity, unspecified; Z68.27 Body mass index [BMI] 27.0-27.9, adult; Z95.5 Presence of coronary angioplasty implant and graft; Z88.8 Allergy status to other drugs, medicaments and biological substances; Z79.84 Long term (current) use of oral hypoglycemic drugs; Z79.4 Long term (current) use of insulin; Z79.82 Long term (current) use of aspirin; Z79.51 Long term (current) use of inhaled steroids; Z79.899 Other long term (current) drug therapy
CPT/HCPCS: 36415; 71045; 80053; 84484; 85025; 85610; 93005; 93010; 96360; 99284; 99285; J7030

== ENCOUNTER 2024-12-13 16:29 | Emergency (ER) | payer OTHER ==
[2024-12-13 16:44] VITALS: BP 124/67; PULSE 65
== END 2024-12-13 17:20 | disposition home or self-care (01) ==
LOC: DL.ED 16:29
DX: H53.451 Other localized visual field defect, right eye (principal); I11.0 Hypertensive heart disease with heart failure; I50.9 Heart failure, unspecified; I25.10 Atherosclerotic heart disease of native coronary artery without angina pectoris; E78.00 Pure hypercholesterolemia, unspecified; J45.909 Unspecified asthma, uncomplicated; E11.9 Type 2 diabetes mellitus without complications; E66.9 Obesity, unspecified; Z79.899 Other long term (current) drug therapy; Z79.4 Long term (current) use of insulin; Z79.82 Long term (current) use of aspirin; Z88.8 Allergy status to other drugs, medicaments and biological substances
CPT/HCPCS: 99283